=== PATIENT | male | born 1980 | race Asian ===

== ENCOUNTER 2024-12-08 14:21 | Emergency (ER) | payer MEDICAID, OTHER ==
[~2024-12-08] VITALS: Ht 167.6 cm; Wt 63.5 kg
[2024-12-08 14:31] VITALS: BP 130/86; TEMP 98.1
[2024-12-08 15:39] VITALS: O2SAT 98
== END 2024-12-08 15:41 | disposition home or self-care (01) ==
LOC: ER 14:35
DX: S10.93XA Contusion of unspecified part of neck, initial encounter (principal); S09.8XXA Other specified injuries of head, initial encounter; G44.309 Post-traumatic headache, unspecified, not intractable; K08.89 Other specified disorders of teeth and supporting structures; R42 Dizziness and giddiness; Y04.0XXA Assault by unarmed brawl or fight, initial encounter; Y93.89 Activity, other specified; Y92.89 Other specified places as the place of occurrence of the external cause; Y99.8 Other external cause status
CPT/HCPCS: 70450-TC; 70486-TC; 72125-TC